=== PATIENT | female | born 1965 | race African-American/Black ===

== ENCOUNTER 2023-07-31 17:12 | Inpatient (IN) | payer OTHER ==
[~2023-07-31] VITALS: Ht 193 cm; Wt 79.8 kg
[~2023-07-31 17:12] MED LIST: HYDR-4350 MT; LEVO500T2 MT; METR500T MT; PHEN100C4 MT
[2023-07-31] MEDS ORDERED: FAMOTIDINE 20MG/2ML VIAL IV STA (18:05)
[2023-07-31] MEDS ORDERED: ONDANSETRON HCL 4MG/2ML INJ IV STA (18:05)
[2023-07-31] MEDS ORDERED: MORPHINE SULFATE 4 MG/ML CPJ (NOT FOR IM USE) IV STA (18:05)
[2023-07-31] MEDS ORDERED: SODIUM CHLORIDE 0.9% 1,000 ML IV ONE (18:15)
[2023-07-31 18:56] LABS: CHLORIDE 98 mEq/L (98-107); INDEX HEMOLYSI 4 (1-3); INDEX ICTERIC 1 (1-4); INDEX LIPEMIC 1 (1-3); SODIUM 134 mEq/L (136-145)
[2023-07-31 19:04] LABS: ALANINE AMINOTRANSFERASE 32 IU/L (13-61); ALBUMIN 3.7 g/dL (3.4-5.0); ASPARTATE AMINOTRANSFERASE 51 IU/L (15-37); BILIRUBIN TOTAL 0.8 mg/dL (0.1-1.0); CALCIUM 9.1 mg/dL (8.5-10.1); CARBON DIOXIDE 31 mEq/L (21-32); CREATININE 0.4 mg/dL (0.6-1.3); GLUCOSE 94 mg/dL (70-105); UREA NITROGEN BLOOD 5 mg/dL (7-21)
[2023-07-31 19:07] LABS: POTASSIUM 3.8 mEq/L (3.5-5.1)
[2023-07-31 19:37] LABS: CLARITY URINE CLOUDY (CLEAR); COLOR URINE YELLOW (YELLOW); GLUCOSE URINE NEGATIVE (NEGATIVE); KETONES URINE 1+ (NEGATIVE); LEUKOCYTE ESTERASE URINE NEGATIVE (NEGATIVE); NITRITE URINE NEGATIVE (NEGATIVE); OCCULT BLOOD URINE NEGATIVE (NEGATIVE); PH URINE >=9.0 (4.5-8.0); PROTEIN URINE TRACE (NEGATIVE); SPECIFIC GRAVITY URINE 1.011 (1.005-1.030); UROBILINOGEN URINE 0.2 E.U./dL (0.2-1.0)
[2023-07-31 19:58] LABS: BACTERIA URINE 2+; RBC URINE 0-2 /hpf (0-2); SQUAMOUS EPITHELIAL CELL URINE 1+ /lpf (RARE/1+); WBC URINE 0-2 /hpf (0-2)
[2023-07-31 19:59] LABS: AMORPHOUS SEDIMENT URINE 1+ /lpf
[2023-07-31 21:20] LABS: BASOPHILS % 0.8 % (0.0-2.0); HEMATOCRIT. 39.3 % (36.0-48.0); HEMOGLOBIN. 13.2 g/dL (12.0-16.0); LYMPHOCYTES % 35.3 % (20.0-50.0); MEAN CORPUSCULAR HEMOGLOBIN 30.9 pg (28.0-32.0); MEAN CORPUSCULAR HGB CONC 33.6 g/dL (31.0-37.0); MEAN PLATELET VOLUME 7.7 fl (7.4-10.4); MONOCYTES % 10.8 % (2.0-8.0); NEUTROPHILS % 52.1 % (40.0-76.0); PLATELET 242 x1000/uL (130-400); RED BLOOD CELL COUNT 4.27 mill/uL (4.2-5.4); RED CELL DISTRIBUTION WIDTH 16.7 % (11.6-14.6)
[2023-07-31] MEDS ORDERED: MORPHINE SULFATE 4 MG/ML CPJ (NOT FOR IM USE) IV ONE (22:00)
[2023-07-31] MEDS ORDERED: ONDANSETRON HCL 4MG/2ML INJ IV ONE (22:00)
[2023-08-01] MEDS ORDERED: IOHEXOL-300 100 ML BOTTLE ONE (06:46)
[2023-08-01] MEDS: TRAMADOL 50MG TABLET PO PRN ×3 (09:31→21:20)
[2023-08-01] MEDS ORDERED: HYDRALAZINE 20MG/ML VIAL IV ONE (11:15)
[2023-08-01] MEDS ORDERED: ONDANSETRON HCL 4MG/2ML INJ IV PRN (13:00)
[2023-08-01] MEDS ORDERED: ACETAMINOPHEN 325MG TABLET PO PRN (13:00)
[2023-08-01] MEDS: OMEPRAZOLE 20MG CAPSULE EXTENDED RELEASE PO SCH (14:21)
[2023-08-01] MEDS: AMLODIPINE 10MG TABLET PO SCH (14:21)
[2023-08-01 16:00] VITALS: BP 174/90; PULSE 78; RESP 20; TEMP 97.6
[2023-08-01] MEDS ORDERED: NALOXONE HCL 0.4MG/ML VIAL IV PRN (16:00)
[2023-08-01 16:03] LABS: *AMPHETAMINES SCREEN URINE NEGATIVE (NEGATIVE); *BARBITURATES SCREEN URINE NEGATIVE (NEGATIVE); *BENZODIAZEPINES SCREEN URINE NEGATIVE (NEGATIVE); *COCAINE SCREEN URINE NEGATIVE (NEGATIVE); CANNABINOID URINE SCREEN PRESUMTIVE POSITIVE (NEGATIVE); ECSTASY MDMA SCREEN URINE NEGATIVE (NEGATIVE); METHADONE URINE SCREEN NEGATIVE (NEGATIVE); OPIATES URINE SCREEN PRESUMTIVE POSITIVE (NEGATIVE); PHENCYCLIDINE URINE SCREEN NEGATIVE (NEGATIVE)
[2023-08-01] MEDS ORDERED: LACTULOSE 20G/30ML UDC PO PRN (16:45)
[2023-08-01] MEDS ORDERED: POLYETHYLENE GLYCOL 3350 (17GM) 1 DOSE PACK PO NR (16:45)
[2023-08-01] MEDS: SUCRALFATE 1 G/10 ML UDC PO SCH ×2 (18:13→21:20)
[2023-08-01 20:00] VITALS: BP 178/89; PULSE 72; RESP 18; TEMP 96.2
[2023-08-01] MEDS: PHENYTOIN SODIUM EXTENDED 100MG CAPSULE PO SCH (20:00)
[2023-08-01 20:11] VITALS: BP 174/90; PULSE 75; RESP 20; TEMP 97.6
[2023-08-02] VITALS: BP 175/102; PULSE 74; RESP 19; TEMP 98.4
[2023-08-02 04:00] VITALS: BP 170/97; PULSE 74; RESP 18; TEMP 99.3
[2023-08-02 04:00] LABS: BASOPHILS % 0.6 % (0.0-2.0); EOSINOPHILS % 1.9 % (0.0-5.0); HEMATOCRIT. 42.8 % (36.0-48.0); HEMOGLOBIN. 14.4 g/dL (12.0-16.0); LYMPHOCYTES % 40.2 % (20.0-50.0); MEAN CORPUSCULAR HEMOGLOBIN 31.1 pg (28.0-32.0); MEAN CORPUSCULAR HGB CONC 33.7 g/dL (31.0-37.0); MEAN CORPUSCULAR VOLUME 92.3 fL (81.0-99.0); MEAN PLATELET VOLUME 8.3 fl (7.4-10.4); NEUTROPHILS % 45.3 % (40.0-76.0); PLATELET 266 x1000/uL (130-400); RED BLOOD CELL COUNT 4.64 mill/uL (4.2-5.4); RED CELL DISTRIBUTION WIDTH 16.4 % (11.6-14.6); WHITE BLOOD COUNT 4.9 x1000/uL (4.5-11.0)
[2023-08-02 04:13] LABS: CHLORIDE 96 mEq/L (98-107); INDEX HEMOLYSI 1 (1-3); INDEX ICTERIC 1 (1-4); INDEX LIPEMIC 1 (1-3); POTASSIUM 3.1 mEq/L (3.5-5.1); SODIUM 135 mEq/L (136-145)
[2023-08-02 04:21] LABS: ALANINE AMINOTRANSFERASE 25 IU/L (13-61); ALBUMIN 3.5 g/dL (3.4-5.0); ASPARTATE AMINOTRANSFERASE 33 IU/L (15-37); BILIRUBIN DIRECT < 0.1 mg/dL (0.0-0.2); BILIRUBIN TOTAL 0.3 mg/dL (0.1-1.0); CALCIUM 9.2 mg/dL (8.5-10.1); CARBON DIOXIDE 29 mEq/L (21-32); CREATININE 0.4 mg/dL (0.6-1.3); GLUCOSE 82 mg/dL (70-105); PROTEIN TOTAL 7.2 g/dL (6.0-8.3); UREA NITROGEN BLOOD 5 mg/dL (7-21)
[2023-08-02 05:27] LABS: PROTHROMBIN TIME 10.7 sec (9.6-11.0)
[2023-08-02 08:00] VITALS: BP 148/87; PULSE 64; RESP 19; TEMP 97.7
[2023-08-02] MEDS ORDERED: POTASSIUM CHLORIDE INJ 40 MEQ in DEXT 5% WATER 500 ML IV NR ×2 (10:00→11:00)
[2023-08-02] MEDS ORDERED: FENTANYL CITRATE/PF 50MCG/ML 2ML VIAL ONE (11:05)
[2023-08-02] MEDS ORDERED: LIDOCAINE HCL 2% 5ML SYRINGE IV ONE (11:05)
[2023-08-02] MEDS ORDERED: PROPOFOL 200MG/20ML VIAL IV ONE (11:06)
[2023-08-02] MEDS ORDERED: GLYCOPYRROLATE 0.2 MG/ML 2ML VIAL ONE (11:14)
[2023-08-02] MEDS ORDERED: SIMETHICONE 40 MG/0.6 ML 15ML ONE (11:28)
[2023-08-02 12:00] VITALS: BP 170/95; PULSE 63; RESP 20; TEMP 97
[2023-08-02] MEDS: SUCRALFATE 1 G/10 ML UDC PO SCH ×2 (12:20→12:46)
[2023-08-02] MEDS ORDERED: OMEP40CA20 MT (12:37)
[2023-08-02] MEDS: PHENYTOIN SODIUM EXTENDED 100MG CAPSULE PO SCH (12:46)
[2023-08-02] MEDS: AMLODIPINE 10MG TABLET PO SCH (12:46)
[2023-08-02] MEDS: OMEPRAZOLE 20MG CAPSULE EXTENDED RELEASE PO SCH (12:47)
[2023-08-02 13:48] VITALS: BP 154/75; PULSE 63; TEMP 97; O2SAT 100
== END 2023-08-02 15:18 | disposition home or self-care (01) | DRG 241 ==
LOC: ER 17:50 → 6WST 08-01 05:30
PROVIDERS: ADMIT Internal Medicine; ATTEND Internal Medicine
PROC: 0DB78ZX Excision of Stomach, Pylorus, Via Natural or Artificial Opening Endoscopic, Diagnostic (ICD-10-PCS; principal; 2023-08-02)
DX: K29.60 Other gastritis without bleeding (principal); D25.9 Leiomyoma of uterus, unspecified; K57.90 Diverticulosis of intestine, part unspecified, without perforation or abscess without bleeding; I16.0 Hypertensive urgency; K44.9 Diaphragmatic hernia without obstruction or gangrene; G40.909 Epilepsy, unspecified, not intractable, without status epilepticus; E66.9 Obesity, unspecified; R74.01 Elevation of levels of liver transaminase levels; Z76.5 Malingerer [conscious simulation]; Z20.822 Contact with and (suspected) exposure to COVID-19; I10 Essential (primary) hypertension; I25.10 Atherosclerotic heart disease of native coronary artery without angina pectoris; K59.00 Constipation, unspecified; J45.909 Unspecified asthma, uncomplicated; Z88.0 Allergy status to penicillin; Z79.899 Other long term (current) drug therapy; Z79.891 Long term (current) use of opiate analgesic
CPT/HCPCS: 36415; 74177; 80048; 80053; 80076; 80305; 81003; 85025; 87426; 88305; 93005; 99285; J0360; J2270; J2405; J2704; J3010; J3480; J3490; J7030; J7060; Q9967

== ENCOUNTER 2023-11-06 03:24 | Emergency (ER) | payer OTHER ==
[~2023-11-06] VITALS: Ht 170.2 cm; Wt 65.0 kg
[~2023-11-06 03:24] MED LIST changes: -HYDR-4350 MT; -LEVO500T2 MT; -METR500T MT; +OMEP40CA20 MT
[2023-11-06 03:26] VITALS: BP 142/70; O2SAT 98
[2023-11-06] MEDS ORDERED: IBUP-2028 MT (05:34)
[2023-11-06 05:57] VITALS: PULSE 80; RESP 16; TEMP 98.5
== END 2023-11-06 05:59 | disposition home or self-care (01) ==
LOC: ER 03:35
DX: M79.642 Pain in left hand (principal); I10 Essential (primary) hypertension; J45.909 Unspecified asthma, uncomplicated; Z88.0 Allergy status to penicillin; Z86.59 Personal history of other mental and behavioral disorders
CPT/HCPCS: 73130; 99283

== ENCOUNTER 2024-04-25 15:44 | Emergency (ER) | payer OTHER ==
[~2024-04-25] VITALS: Ht 165.1 cm; Wt 68.0 kg
[~2024-04-25 15:44] MED LIST changes: +IBUP-2028 MT
[2024-04-25 15:47] VITALS: BP 183/115; PULSE 88; RESP 15; TEMP 98.4; O2SAT 98
== END 2024-04-25 16:27 | disposition home or self-care (01) ==
LOC: ER 15:48
DX: K08.89 Other specified disorders of teeth and supporting structures (principal); Z53.21 Procedure and treatment not carried out due to patient leaving prior to being seen by health care provider

== ENCOUNTER 2024-06-28 19:03 | Emergency (ER) | payer OTHER ==
[~2024-06-28] VITALS: Ht 160 cm; Wt 50.0 kg
[~2024-06-28 19:03] MED LIST changes: +ALBU6.7H15 INH; +AMLO10TA4 PO; +DICL50TA9 PO; +KEPP500 PO; +P20 PO
[2024-06-28 19:22] VITALS: O2SAT 100
[2024-06-28 20:30] LABS: BASOPHILS % 1.6 % (0.0-2.0); EOSINOPHILS % 1.7 % (0.0-5.0); HEMATOCRIT. 40.2 % (36.0-48.0); HEMOGLOBIN. 13.6 g/dL (12.0-16.0); LYMPHOCYTES % 34.4 % (20.0-50.0); MEAN CORPUSCULAR HEMOGLOBIN 33.2 pg (28.0-32.0); MEAN CORPUSCULAR HGB CONC 33.8 g/dL (31.0-37.0); MEAN CORPUSCULAR VOLUME 98.1 fL (81.0-99.0); MONOCYTES % 9.9 % (2.0-8.0); NEUTROPHILS % 52.4 % (40.0-76.0); PLATELET 178 x1000/uL (130-400); RED BLOOD CELL COUNT 4.09 mill/uL (4.2-5.4); RED CELL DISTRIBUTION WIDTH 15.1 % (11.6-14.6)
[2024-06-28] MEDS: LEVETIRACETAM 500MG PREMIX 100 ML IV ONE (20:34)
[2024-06-28 20:35] LABS: CHLORIDE 100 mEq/L (98-107); POTASSIUM 5.6 mEq/L (3.5-5.1); SODIUM 134 mEq/L (136-145)
[2024-06-28 20:36] LABS: CARBON DIOXIDE 23 mEq/L (21-32)
[2024-06-28 20:37] LABS: CALCIUM 9.7 mg/dL (8.7-10.4)
[2024-06-28 20:41] LABS: CREATININE 0.5 mg/dL (0.6-1.0); GLUCOSE 75 mg/dL (70-105)
[2024-06-28 20:45] LABS: UREA NITROGEN BLOOD < 5 mg/dL (9-23)
[2024-06-28 22:25] VITALS: BP 142/90; PULSE 80; RESP 18; TEMP 98.3
== END 2024-06-28 22:43 | disposition home or self-care (01) ==
LOC: ER 19:03
DX: G40.909 Epilepsy, unspecified, not intractable, without status epilepticus (principal); F12.10 Cannabis abuse, uncomplicated; Z87.891 Personal history of nicotine dependence; Z79.899 Other long term (current) drug therapy; Z88.0 Allergy status to penicillin
CPT/HCPCS: 99284; 96365; 80048; 85025; 36415; J1953

== ENCOUNTER 2024-11-20 23:54 | Emergency (ER) | payer OTHER ==
[~2024-11-20] VITALS: Ht 157.5 cm; Wt 55.0 kg
[~2024-11-20 23:54] MED LIST changes: -AMLO10TA4 PO; +COR12 PO; +FURO-151 MT; +HYDR-4001 PO; -IBUP-2028 MT; +LISI10TA26 PO; -P20 PO
[2024-11-21 00:14] VITALS: O2SAT 100
[2024-11-21] MEDS ORDERED: MIDAZOLAM HCL 2 MG/2 ML VIAL IV ONE (01:00)
[2024-11-21] MEDS ORDERED: LEVETIRACETAM 500MG PREMIX 100 ML IV ONE (01:00)
[2024-11-21 06:16] LABS: BASOPHILS % 1.5 % (0.0-2.0); EOSINOPHILS % 3.9 % (0.0-5.0); HEMATOCRIT. 37.1 % (36.0-48.0); HEMOGLOBIN. 11.9 g/dL (12.0-16.0); LYMPHOCYTES % 38.1 % (20.0-50.0); MEAN CORPUSCULAR HEMOGLOBIN 31.1 pg (28.0-32.0); MEAN CORPUSCULAR HGB CONC 32.2 g/dL (31.0-37.0); MEAN CORPUSCULAR VOLUME 96.8 fL (81.0-99.0); MEAN PLATELET VOLUME 7.6 fl (7.4-10.4); MONOCYTES % 7.5 % (2.0-8.0); PLATELET 255 x1000/uL (130-400); RED BLOOD CELL COUNT 3.84 mill/uL (4.2-5.4)
[2024-11-21] MEDS: LEVETIRACETAM 500MG PREMIX 100 ML IV NR (06:22)
[2024-11-21] MEDS: PHENYTOIN SODIUM 1,000 MG in SODIUM CHLORIDE 0.9% 100 ML IV ONE (06:23)
[2024-11-21] MEDS: LEVETIRACETAM 500MG PREMIX 100 ML IV ONE (06:23)
[2024-11-21 06:28] LABS: CARBON DIOXIDE 25 mEq/L (21-32); CHLORIDE 102 mEq/L (98-107); POTASSIUM 4.1 mEq/L (3.5-5.1); SODIUM 135 mEq/L (136-145)
[2024-11-21 06:29] LABS: CALCIUM 10.2 mg/dL (8.7-10.4)
[2024-11-21 06:33] LABS: CREATININE 0.7 mg/dL (0.6-1.0)
[2024-11-21 06:34] LABS: ETHANOL BLOOD 101 mg/dL (<10); GLUCOSE 70 mg/dL (70-105); UREA NITROGEN BLOOD 10 mg/dL (9-23)
[2024-11-21 06:35] LABS: ALANINE AMINOTRANSFERASE 12 IU/L (10-49); ALBUMIN 4.6 g/dL (3.2-4.8); ASPARTATE AMINOTRANSFERASE 31 IU/L (<34)
[2024-11-21 06:36] LABS: BILIRUBIN TOTAL 0.3 mg/dL (0.1-1.0); PHOSPHORUS 3.8 mg/dL (2.5-4.9); PROTEIN TOTAL 8.2 g/dL (6.0-8.3)
[2024-11-21 07:28] VITALS: TEMP 36.66960
[2024-11-21 09:00] VITALS: BP 184/100; PULSE 71; RESP 21; O2SAT 100
[2024-11-21] MEDS: NITROGLYCERIN 0.4MG TABLET SL SL ONE (09:27)
[2024-11-21 09:41] VITALS: TEMP 98
[2024-11-21] MEDS: ACETAMINOPHEN 325MG TABLET PO ONE (09:41)
== END 2024-11-21 09:25 | disposition short-term general hospital (02) ==
LOC: ER 23:54 → CANBEDREQ 11-21 07:47 → ER 11-21 09:25
DX: G40.909 Epilepsy, unspecified, not intractable, without status epilepticus (principal); F10.129 Alcohol abuse with intoxication, unspecified; I11.0 Hypertensive heart disease with heart failure; I50.9 Heart failure, unspecified; F12.90 Cannabis use, unspecified, uncomplicated; J44.9 Chronic obstructive pulmonary disease, unspecified; Z79.899 Other long term (current) drug therapy; Z88.0 Allergy status to penicillin; Z88.1 Allergy status to other antibiotic agents; Y90.9 Presence of alcohol in blood, level not specified
CPT/HCPCS: 80053; 80320; 80185; 83735; 84100; 85025; 36415; 99284; 82542; 96365; J1953; J1165; J7050; G0480

== ENCOUNTER 2025-02-19 19:30 | Emergency (ER) | payer MEDICAID ==
[~2025-02-19] VITALS: Ht 165.1 cm; Wt 66.0 kg
[2025-02-19 19:35] VITALS: O2SAT 97
[2025-02-19] MEDS: ACETAMINOPHEN 325MG TABLET PO ONE (22:52)
[2025-02-19 23:08] VITALS: BP 152/80; PULSE 92; RESP 18; TEMP 36.7; O2SAT 97
== END 2025-02-19 23:15 | disposition home or self-care (01) ==
LOC: ER 19:30
DX: R51.9 Headache, unspecified (principal); F12.10 Cannabis abuse, uncomplicated; E11.9 Type 2 diabetes mellitus without complications; I10 Essential (primary) hypertension; Z88.0 Allergy status to penicillin; Z88.1 Allergy status to other antibiotic agents; Z79.899 Other long term (current) drug therapy; Z86.59 Personal history of other mental and behavioral disorders
CPT/HCPCS: 99284

== ENCOUNTER 2025-02-20 00:07 | Emergency (ER) | payer MEDICAID ==
[2025-02-20 00:17] VITALS: PULSE 72; O2SAT 99
== END 2025-02-20 00:32 | disposition left against medical advice (07) ==
LOC: ER 00:07
DX: R51.9 Headache, unspecified (principal); M54.9 Dorsalgia, unspecified; Z53.21 Procedure and treatment not carried out due to patient leaving prior to being seen by health care provider

== ENCOUNTER 2025-06-10 22:04 | Inpatient (IN) | payer MEDICAID ==
[~2025-06-10] VITALS: Ht 157.5 cm; Wt 61.0 kg
[~2025-06-10 22:04] MED LIST changes: +SPIR25TA6 MT
[2025-06-10] MEDS ORDERED: ALBUTEROL (0.083%) 2.5MG/3ML NEB HHN ONE (23:00)
[2025-06-10] MEDS ORDERED: IPRATROPIUM BROMIDE (0.02%) 0.5MG/2.5ML NEB HHN ONE (23:00)
[2025-06-10 23:34] LABS: BASOPHILS % 1.7 % (0.0-2.0); EOSINOPHILS % 4.1 % (0.0-5.0); HEMATOCRIT. 36.1 % (36.0-48.0); HEMOGLOBIN. 11.6 g/dL (12.0-16.0); LYMPHOCYTES % 23.1 % (20.0-50.0); MEAN PLATELET VOLUME 8.8 fl (7.4-10.4); MONOCYTES % 11.6 % (2.0-8.0); NEUTROPHILS % 59.5 % (40.0-76.0); PLATELET 238 x1000/uL (130-400); RED BLOOD CELL COUNT 4.10 mill/uL (4.2-5.4); RED CELL DISTRIBUTION WIDTH 15.7 % (11.6-14.6)
[2025-06-10 23:46] LABS: CREATININE 0.7 mg/dL (0.6-1.0); UREA NITROGEN BLOOD 19 mg/dL (9-23)
[2025-06-10 23:47] LABS: ETHANOL BLOOD < 10 mg/dL (<10); INR 1.1
[2025-06-10 23:48] LABS: ASPARTATE AMINOTRANSFERASE 176 IU/L (<34)
[2025-06-10 23:49] LABS: BILIRUBIN DIRECT 0.1 mg/dL (<=3.0); BILIRUBIN TOTAL 0.4 mg/dL (0.1-1.0); PROTEIN TOTAL 7.6 g/dL (6.0-8.3)
[2025-06-11] VITALS (7 sets, daily range): BP systolic 100–181; BP diastolic 59–111; PULSE 72–115; RESP 12–24; TEMP 36.6404–36.9; O2SAT 98–99
[2025-06-11 00:05] LABS: TROPONIN I HIGH SENSITIVITY 107 ng/L (3.0-34)
[2025-06-11 00:10] LABS: CLARITY URINE CLEAR (CLEAR); COLOR URINE YELLOW (YELLOW); GLUCOSE URINE NEGATIVE (NEGATIVE); KETONES URINE NEGATIVE (NEGATIVE); LEUKOCYTE ESTERASE URINE TRACE (NEGATIVE); NITRITE URINE NEGATIVE (NEGATIVE); OCCULT BLOOD URINE 1+ (NEGATIVE); PH URINE 5.5 (4.5-8.0); PROTEIN URINE 2+ (NEGATIVE); SPECIFIC GRAVITY URINE 1.015 (1.005-1.030); UROBILINOGEN URINE 0.2 E.U./dL (0.2-1.0)
[2025-06-11 00:19] LABS: *AMPHETAMINES SCREEN URINE NEGATIVE (NEGATIVE); *BARBITURATES SCREEN URINE NEGATIVE (NEGATIVE); *BENZODIAZEPINES SCREEN URINE NEGATIVE (NEGATIVE); *COCAINE SCREEN URINE NEGATIVE (NEGATIVE); CANNABINOID URINE SCREEN NEGATIVE (NEGATIVE); ECSTASY MDMA SCREEN URINE NEGATIVE (NEGATIVE); METHADONE URINE SCREEN NEGATIVE (NEGATIVE); OPIATES URINE SCREEN NEGATIVE (NEGATIVE); PHENCYCLIDINE URINE SCREEN NEGATIVE (NEGATIVE)
[2025-06-11 00:39] LABS: SQUAMOUS EPITHELIAL CELL URINE 1+ /lpf (RARE/1+)
[2025-06-11 00:40] LABS: RBC URINE 0-2 /hpf (0-2); WBC URINE 0-2 /hpf (0-2)
[2025-06-11 00:41] LABS: BACTERIA URINE TRACE
[2025-06-11] MEDS: ENOXAPARIN 60MG/0.6ML SYR SUBCUT NR (00:43)
[2025-06-11] MEDS: ASPIRIN 325MG EC TABLET PO NR (00:44)
[2025-06-11] MEDS: MORPHINE SULFATE 4 MG/ML INJ (FOR IV/IM USE) IV NR (00:44)
[2025-06-11] MEDS: FUROSEMIDE 40MG/4ML VIAL IVP NR (00:45)
[2025-06-11] MEDS: DEXTROSE 50% WATER 50ML SYRINGE IV NR (01:03)
[2025-06-11] MEDS: NITROGLYCERIN OINT 1GM/INCH UDPKT TD NR (01:04)
[2025-06-11] MEDS: IPRATROPIUM BROMIDE (0.02%) 0.5MG/2.5ML NEB HHN NR (03:49)
[2025-06-11] MEDS: ALBUTEROL (0.083%) 2.5MG/3ML NEB HHN NR (03:49)
[2025-06-11] MEDS ORDERED: DEXTROSE 50% WATER 50ML SYRINGE IV PRN (10:00)
[2025-06-11] MEDS ORDERED: ONDANSETRON HCL 4MG/2ML INJ IV PRN (10:00)
[2025-06-11] MEDS ORDERED: IPRATROPIUM/ALBUTEROL 0.5-3(2.5)MG/3ML NEB HHN PRN (10:00)
[2025-06-11] MEDS: CARVEDILOL 12.5MG TABLET PO SCH (10:56)
[2025-06-11] MEDS: FUROSEMIDE 40MG/4ML VIAL IVP SCH (10:56)
[2025-06-11] MEDS: PANTOPRAZOLE SODIUM 40 MG/VIAL IV SCH (10:56)
[2025-06-11] MEDS: LEVETIRACETAM 500MG TABLET PO SCH (10:56)
[2025-06-11] MEDS: SPIRONOLACTONE 25MG TABLET PO SCH (10:57)
[2025-06-11] MEDS: LISINOPRIL 10MG TABLET PO SCH (10:57)
[2025-06-11] MEDS: ACETAMINOPHEN 325MG TABLET PO PRN (10:58)
[2025-06-11] MEDS: IPRATROPIUM/ALBUTEROL 0.5-3(2.5)MG/3ML NEB HHN PRN (11:49)
[2025-06-11] MEDS: BLOOD SUGAR DIAGNOSTIC STRIP TEST SCH (12:20)
[2025-06-11] MEDS: INSULIN LISPRO 100 UNITS/ML SUBCUT SCH (12:50)
[2025-06-11] MEDS: CEFTRIAXONE 1GM/50ML 50 ML IV SCH (13:29)
[2025-06-11] MEDS: EMPAGLIFLOZIN 10MG TABLET PO SCH (13:30)
[2025-06-11] MEDS: ISOSORBIDE MONONITRATE 30MG TABLET SR 24HR PO SCH (13:32)
[2025-06-11] MEDS ORDERED: ASPIRIN 81MG TABLET PO SCH (15:45)
[2025-06-11] MEDS: ENOXAPARIN 60MG/0.6ML SYR SUBCUT SCH (15:53)
[2025-06-11 18:02] LABS: TRIGLYCERIDE 130 mg/dL (0-150)
[2025-06-11 18:03] LABS: LDL CHOLESTEROL 83 mg/dL (5-100)
[2025-06-11 18:13] LABS: TROPONIN I HIGH SENSITIVITY 99 ng/L (3.0-34)
[2025-06-11] MEDS ORDERED: ATORVASTATIN CALCIUM 40MG TABLET PO SCH ×2 (21:00)
[2025-06-11] MEDS ORDERED: FUROSEMIDE 40MG/4ML VIAL IVP SCH (21:00)
[2025-06-12] MEDS ORDERED: ASPIRIN 81MG TABLET PO SCH (09:00)
== END 2025-06-11 20:31 | disposition left against medical advice (07) | DRG 194 ==
LOC: ER 22:04 → 6WST 06-11 00:13 → EDBEDREQ 06-11 00:30 → EDBEDREQDT 06-11 00:30 → EDBEDREQTM 06-11 00:30 → ENRESERV 06-11 06:14
PROVIDERS: ADMIT Internal Medicine; ATTEND Internal Medicine
DX: I11.0 Hypertensive heart disease with heart failure (principal); I21.A1 Myocardial infarction type 2; I42.0 Dilated cardiomyopathy; I50.23 Acute on chronic systolic (congestive) heart failure; E11.9 Type 2 diabetes mellitus without complications; F17.210 Nicotine dependence, cigarettes, uncomplicated; Z20.822 Contact with and (suspected) exposure to COVID-19; N39.0 Urinary tract infection, site not specified; G89.29 Other chronic pain; K21.9 Gastro-esophageal reflux disease without esophagitis; J44.89 Other specified chronic obstructive pulmonary disease; Z53.29 Procedure and treatment not carried out because of patient's decision for other reasons; G40.909 Epilepsy, unspecified, not intractable, without status epilepticus; I25.10 Atherosclerotic heart disease of native coronary artery without angina pectoris; Z91.013 Allergy to seafood; Z88.0 Allergy status to penicillin; Z79.899 Other long term (current) drug therapy; Z71.6 Tobacco abuse counseling; Z88.8 Allergy status to other drugs, medicaments and biological substances
CPT/HCPCS: 36415; 71045; 80048; 80061; 80076; 80305; 80320; 81003; 82728; 82962; 83036; 83540; 83550; 83605; 83735; 83880; 84145; 84443; 84484; 85025; 86592; 87426; 93005; 94003; 94070; 94640; 94664; 98960; 99291; J0696; J1650; J1938; J2270; J2470; G0480

== ENCOUNTER 2025-06-26 07:07 | Inpatient (IN) | payer MEDICAID ==
[~2025-06-26] VITALS: Ht 165.1 cm; Wt 52.6 kg
[2025-06-26] MEDS: DEXTROSE 50% WATER 50ML SYRINGE IV ONE (08:14)
[2025-06-26 08:15] LABS: HEMATOCRIT. 36.5 % (36.0-48.0); HEMOGLOBIN. 11.8 g/dL (12.0-16.0); MEAN PLATELET VOLUME 7.9 fl (7.4-10.4); PLATELET 252 x1000/uL (130-400); RED BLOOD CELL COUNT 4.26 mill/uL (4.2-5.4); RED CELL DISTRIBUTION WIDTH 16.3 % (11.6-14.6)
[2025-06-26 08:32] LABS: CREATININE 0.6 mg/dL (0.6-1.0)
[2025-06-26 08:33] LABS: ETHANOL BLOOD < 10 mg/dL (<10); UREA NITROGEN BLOOD 14 mg/dL (9-23)
[2025-06-26 08:35] LABS: ASPARTATE AMINOTRANSFERASE 131 IU/L (<34); BILIRUBIN DIRECT 0.2 mg/dL (<=3.0); BILIRUBIN TOTAL 0.6 mg/dL (0.1-1.0); PROTEIN TOTAL 6.7 g/dL (6.0-8.3)
[2025-06-26 09:48] LABS: BAND% 9.0 % (1.0-6.0); EOSINOPHILS % MANUAL 1.0 % (0.0-5.0); LYMPHOCYTES % MANUAL 30.0 % (20.0-60.0); MONOCYTES % MANUAL 16.0 % (2.0-8.0); NEUTROPHILS % MANUAL 44.0 % (45.0-75.0); PLATELET ESTIMATE NORMAL
[2025-06-26] MEDS: DEXT 5%/0.9% NACL 1,000 ML IV SCH (13:31)
[2025-06-26 14:24] LABS: CLARITY URINE CLEAR (CLEAR); COLOR URINE YELLOW (YELLOW); GLUCOSE URINE NEGATIVE (NEGATIVE); KETONES URINE NEGATIVE (NEGATIVE); LEUKOCYTE ESTERASE URINE NEGATIVE (NEGATIVE); NITRITE URINE NEGATIVE (NEGATIVE); OCCULT BLOOD URINE NEGATIVE (NEGATIVE); PH URINE 8.5 (4.5-8.0); PROTEIN URINE 2+ (NEGATIVE); SPECIFIC GRAVITY URINE 1.062 (1.005-1.030); UROBILINOGEN URINE 1.0 E.U./dL (0.2-1.0)
[2025-06-26 14:33] LABS: BACTERIA URINE TRACE; RBC URINE 0-2 /hpf (0-2); SQUAMOUS EPITHELIAL CELL URINE 2+ /lpf (RARE/1+); WBC URINE 0-2 /hpf (0-2); YEAST URINE NONE SEEN
[2025-06-26 15:13] LABS: *AMPHETAMINES SCREEN URINE NEGATIVE (NEGATIVE); *BARBITURATES SCREEN URINE NEGATIVE (NEGATIVE); *BENZODIAZEPINES SCREEN URINE NEGATIVE (NEGATIVE); *COCAINE SCREEN URINE NEGATIVE (NEGATIVE); CANNABINOID URINE SCREEN NEGATIVE (NEGATIVE); ECSTASY MDMA SCREEN URINE NEGATIVE (NEGATIVE); METHADONE URINE SCREEN NEGATIVE (NEGATIVE); OPIATES URINE SCREEN NEGATIVE (NEGATIVE); PHENCYCLIDINE URINE SCREEN NEGATIVE (NEGATIVE)
[2025-06-26 16:00] VITALS: BP 179/108; PULSE 82; RESP 19; TEMP 36.4; O2SAT 98
[2025-06-26 18:00] VITALS: BP 179/108; PULSE 82; RESP 19; TEMP 36.418
[2025-06-26] MEDS ORDERED: HYDROCODONE/ACETAMINOPHEN 5/325MG TABLET PO PRN (19:30)
[2025-06-26 20:00] VITALS: BP 152/84; PULSE 92; RESP 19; TEMP 35.6; O2SAT 99
[2025-06-26] MEDS ORDERED: NALOXONE HCL 0.4MG/ML VIAL IV PRN (20:00)
[2025-06-26] MEDS: AMLODIPINE 10MG TABLET PO SCH (22:46)
[2025-06-26] MEDS: LEVETIRACETAM 500MG TABLET PO SCH (22:46)
[2025-06-26] MEDS: CARVEDILOL 12.5MG TABLET PO SCH (22:47)
[2025-06-26] MEDS: LOSARTAN 50 MG TABLET PO SCH (22:47)
[2025-06-26] MEDS: IOHEXOL-300 100 ML BOTTLE ONE (23:32)
[2025-06-27] VITALS: BP 152/93; PULSE 81; RESP 20; TEMP 35.8; O2SAT 97
[2025-06-27 04:00] VITALS: BP 132/78; PULSE 76; RESP 20; TEMP 36.1; O2SAT 96
[2025-06-27 07:52] LABS: HEMATOCRIT. 37.5 % (36.0-48.0); HEMOGLOBIN. 11.9 g/dL (12.0-16.0); MEAN PLATELET VOLUME 8.3 fl (7.4-10.4); PLATELET 239 x1000/uL (130-400); RED BLOOD CELL COUNT 4.34 mill/uL (4.2-5.4); RED CELL DISTRIBUTION WIDTH 16.2 % (11.6-14.6)
[2025-06-27 07:59] LABS: CREATININE 0.6 mg/dL (0.6-1.0)
[2025-06-27 08:00] VITALS: BP 178/96; PULSE 82; RESP 20; TEMP 36.5; O2SAT 98
[2025-06-27 08:00] LABS: TRIGLYCERIDE 108 mg/dL (0-150); UREA NITROGEN BLOOD 12 mg/dL (9-23)
[2025-06-27 08:01] LABS: ASPARTATE AMINOTRANSFERASE 126 IU/L (<34); LDL CHOLESTEROL 104 mg/dL (5-100)
[2025-06-27 08:02] LABS: BILIRUBIN TOTAL 0.7 mg/dL (0.1-1.0); PROTEIN TOTAL 6.7 g/dL (6.0-8.3)
[2025-06-27] MEDS ORDERED: DOCUSATE SODIUM 100MG CAPSULE PO PRN (09:15)
[2025-06-27] MEDS ORDERED: ACETAMINOPHEN 325MG TABLET PO PRN (09:15)
[2025-06-27] MEDS ORDERED: CLONIDINE 0.1MG TABLET PO PRN (09:15)
[2025-06-27] MEDS ORDERED: IPRATROPIUM/ALBUTEROL 0.5-3(2.5)MG/3ML NEB HHN PRN (09:15)
[2025-06-27] MEDS ORDERED: ONDANSETRON HCL 4MG/2ML INJ IV PRN (09:15)
[2025-06-27] MEDS: FUROSEMIDE 40MG TABLET PO SCH (10:20)
[2025-06-27] MEDS: PANTOPRAZOLE 40MG DR TABLET PO SCH (10:21)
[2025-06-27] MEDS: ENOXAPARIN 40MG/0.4ML SYR SUBCUT SCH (10:21)
[2025-06-27 12:00] VITALS: BP 148/92; PULSE 72; RESP 18; TEMP 36.1; O2SAT 98
[2025-06-27 14:38] LABS: CREATINE KINASE MB FRACTION 126.2 ng/mL (0.5-3.6)
[2025-06-27 15:11] LABS: TROPONIN I HIGH SENSITIVITY 89 ng/L (3.0-34)
[2025-06-27 16:00] VITALS: BP 150/101; PULSE 76; RESP 19; TEMP 36.4; O2SAT 97
[2025-06-27] MEDS: HYDROCODONE/ACETAMINOPHEN 5/325MG TABLET PO PRN (16:04)
[2025-06-27 17:15] LABS: EOSINOPHILS % MANUAL 1.0 % (0.0-5.0); METAMYELOCYTES % 2.0 % (0-0); MONOCYTES % MANUAL 11.0 % (2.0-8.0); MYELOCYTES % 1.0 % (0-0); PLATELET ESTIMATE NORMAL
[2025-06-27 17:16] LABS: LYMPHOCYTES % MANUAL 32.0 % (20.0-60.0); NEUTROPHILS % MANUAL 53.0 % (45.0-75.0)
[2025-06-27 20:00] VITALS: BP 142/82; PULSE 71; RESP 18; TEMP 36.4; O2SAT 94
[2025-06-27] MEDS: IPRATROPIUM/ALBUTEROL 0.5-3(2.5)MG/3ML NEB HHN SCH (22:00)
[2025-06-27] MEDS: ATORVASTATIN CALCIUM 40MG TABLET PO SCH (22:21)
[2025-06-27 23:45] LABS: CREATINE KINASE MB FRACTION 195.4 ng/mL (0.5-3.6)
[2025-06-27 23:48] LABS: TROPONIN I HIGH SENSITIVITY 89.0 ng/L (3.0-34)
[2025-06-28] VITALS (10 sets, daily range): BP systolic 101–150; BP diastolic 52–90; PULSE 54–86; RESP 17–20; TEMP 36.3–36.7; O2SAT 94–98
[2025-06-29] VITALS (8 sets, daily range): BP systolic 128–165; BP diastolic 75–97; PULSE 61–95; RESP 16–19; TEMP 35.8–36.9; O2SAT 96–100
[2025-06-29] MEDS: ASPIRIN 81MG TABLET PO SCH (12:30)
[2025-06-30] VITALS (8 sets, daily range): BP systolic 120–135; BP diastolic 67–76; PULSE 54–99; RESP 16–20; TEMP 35.3–36.1; O2SAT 96–100
[2025-06-30] MEDS ORDERED: DIPHENHYDRAMINE 50MG/ML VIAL ONE (10:17)
[2025-06-30] MEDS ORDERED: MIDAZOLAM HCL 2 MG/2 ML VIAL ONE (10:17)
[2025-06-30] MEDS ORDERED: FENTANYL CITRATE/PF 50MCG/ML 2ML VIAL ONE (10:18)
[2025-06-30] MEDS ORDERED: TETRACAINE/BENZOCAINE/BUTAMBEN 20 GM SPRAY MM ONE (10:21)
[2025-06-30] MEDS ORDERED: LIDOCAINE HCL 1% 10 MG/ML 10ML VIAL ONE (10:21)
[2025-07-01] VITALS (12 sets, daily range): BP systolic 122–139; BP diastolic 73–86; PULSE 50–96; RESP 16–20; TEMP 35.9–38.1; O2SAT 94–100
[2025-07-01] MEDS: GUAIFENESIN-DM 200MG-20MG/10ML UDC PO PRN (22:51)
[2025-07-01] MEDS: ACETAMINOPHEN 325MG TABLET PO PRN (22:51)
[2025-07-02] VITALS (9 sets, daily range): BP systolic 101–147; BP diastolic 71–86; PULSE 59–72; RESP 17–20; TEMP 35.6–36.6; O2SAT 94–99
[2025-07-03] VITALS: BP 140/74; PULSE 70; RESP 18; TEMP 36.4; O2SAT 94
[2025-07-03 04:00] VITALS: BP 141/81; PULSE 68; RESP 16; TEMP 36.3; O2SAT 94
[2025-07-03] MEDS: DIPHENHYDRAMINE 50MG CAPSULE PO PRN (06:15)
[2025-07-03 08:00] VITALS: BP_SYST 119; BP_SYST 144; BP_DIAS 83; BP_DIAS 89; PULSE 65; PULSE 69; RESP 17; RESP 18; TEMP 36.5; O2SAT 98
[2025-07-03 12:00] VITALS: BP 144/83; PULSE 65; RESP 18; TEMP 36.5; O2SAT 98
[2025-07-03 16:00] VITALS: BP 130/82; PULSE 64; RESP 19; TEMP 36.3; O2SAT 98
[2025-07-03 20:00] VITALS: BP 140/81; PULSE 65; RESP 18; TEMP 36.6; O2SAT 99
[2025-07-04] VITALS: BP 127/76; PULSE 65; RESP 19; TEMP 36.5; O2SAT 98
[2025-07-04 04:00] VITALS: BP 120/65; PULSE 62; RESP 18; TEMP 36.5; O2SAT 92
[2025-07-04 08:00] VITALS: BP 164/92; PULSE 64; RESP 18; TEMP 36.4; O2SAT 97
[2025-07-04 12:00] VITALS: BP 150/93; PULSE 62; RESP 18; TEMP 36.5; O2SAT 95
[2025-07-04 16:00] VITALS: BP 135/63; PULSE 67; RESP 20; TEMP 36.6; O2SAT 99
[2025-07-05] MEDS: HYDROCODONE/ACETAMINOPHEN 5/325MG TABLET PO PRN (06:44)
[2025-07-05 08:00] VITALS: BP 140/80; PULSE 63; RESP 18; TEMP 36.4; O2SAT 100
[2025-07-05 09:59] LABS: CREATININE 0.6 mg/dL (0.6-1.0); UREA NITROGEN BLOOD 19 mg/dL (9-23)
[2025-07-05 10:01] LABS: PHOSPHORUS 3.2 mg/dL (2.5-4.9)
[2025-07-05 10:04] LABS: HEMATOCRIT. 35.3 % (36.0-48.0); HEMOGLOBIN. 11.5 g/dL (12.0-16.0); MEAN PLATELET VOLUME 8.3 fl (7.4-10.4); PLATELET 262 x1000/uL (130-400); RED BLOOD CELL COUNT 4.18 mill/uL (4.2-5.4); RED CELL DISTRIBUTION WIDTH 16.6 % (11.6-14.6)
[2025-07-05 12:00] VITALS: BP 125/76; PULSE 73; RESP 18; TEMP 37; O2SAT 100
[2025-07-05 16:00] VITALS: BP 118/78; PULSE 68; RESP 18; TEMP 36.4; O2SAT 100
[2025-07-05 20:00] VITALS: BP 118/64; PULSE 67; RESP 16; TEMP 36.9; O2SAT 100
[2025-07-05 20:01] LABS: EOSINOPHILS % MANUAL 4.0 % (0.0-5.0); LYMPHOCYTES % MANUAL 36.0 % (20.0-60.0); MONOCYTES % MANUAL 14.0 % (2.0-8.0); NEUTROPHILS % MANUAL 46.0 % (45.0-75.0); PLATELET ESTIMATE NORMAL
[2025-07-06] VITALS: BP 132/81; PULSE 69; RESP 17; TEMP 36.6; O2SAT 99
[2025-07-06 04:00] VITALS: BP 105/66; PULSE 65; RESP 17; TEMP 36.7; O2SAT 98
[2025-07-06 08:00] VITALS: BP 126/66; PULSE 70; RESP 18; TEMP 36.5; O2SAT 99
[2025-07-06 12:00] VITALS: BP 123/65; PULSE 72; RESP 18; TEMP 36.6; O2SAT 98
[2025-07-06] MEDS ORDERED: CARV12.545 MT (12:48)
[2025-07-06] MEDS ORDERED: ASPI-1406 MT (12:48)
[2025-07-06] MEDS ORDERED: FURO40TA5 PO (12:48)
[2025-07-06] MEDS ORDERED: LIP40 PO (12:48)
[2025-07-06 16:00] VITALS: BP 131/69; PULSE 86; RESP 18; TEMP 36.6; O2SAT 98
[2025-07-06 16:08] VITALS: BP 131/69; PULSE 86; RESP 18; TEMP 97.9
[2025-07-15] MEDS ORDERED: PHEN300C6 MT (15:33)
[2025-07-15] MEDS ORDERED: LISI10TA26 MT ×2 (15:33→16:05)
[2025-07-15] MEDS ORDERED: SPIR25TA6 MT (16:05)
[2025-07-15] MEDS ORDERED: ASPI-1406 MT (16:05)
[2025-07-15] MEDS ORDERED: FURO-151 MT (16:05)
[2025-07-15] MEDS ORDERED: LIP40 PO (16:05)
[2025-07-15] MEDS ORDERED: CARV12.545 MT (16:05)
== END 2025-07-06 20:10 | disposition home health service (06) | DRG 45 ==
LOC: ER 07:07 → EDBEDREQTM 12:17 → EDBEDREQSVC 12:17 → EDBEDREQ 12:19 → ENRESERV 12:44 → 7WST 13:31 → 7EST 14:44
PROVIDERS: ADMIT Internal Medicine; ATTEND Internal Medicine
PROC: B24BZZ4 Ultrasonography of Heart with Aorta, Transesophageal (ICD-10-PCS; principal; 2025-06-27)
DX: I63.9 Cerebral infarction, unspecified (principal); G92.8 Other toxic encephalopathy; I21.A1 Myocardial infarction type 2; I50.23 Acute on chronic systolic (congestive) heart failure; I42.9 Cardiomyopathy, unspecified; R16.0 Hepatomegaly, not elsewhere classified; M62.82 Rhabdomyolysis; D64.9 Anemia, unspecified; G40.909 Epilepsy, unspecified, not intractable, without status epilepticus; I11.0 Hypertensive heart disease with heart failure; D25.9 Leiomyoma of uterus, unspecified; D72.825 Bandemia; E78.5 Hyperlipidemia, unspecified; Z88.1 Allergy status to other antibiotic agents; Z88.0 Allergy status to penicillin; Z91.013 Allergy to seafood; Z88.8 Allergy status to other drugs, medicaments and biological substances; Z79.899 Other long term (current) drug therapy
CPT/HCPCS: 36415; 70544; 70551; 71045; 74177; 80048; 80053; 80061; 80076; 80305; 80320; 81003; 82140; 82550; 82553; 82962; 83605; 83735; 83880; 84100; 84145; 84484; 85025; 93005; 93312; 93880; 93970; 94070; 94640; 94664; 97162; 98960; 99291; A4606; J1200; J1650; J2003; J2250; J3010; J7042; Q0163; Q9967; G0480

== ENCOUNTER 2025-09-10 08:14 | Emergency (ER) | payer MEDICAID ==
[~2025-09-10] VITALS: Ht 157.5 cm; Wt 55.0 kg
[~2025-09-10 08:14] MED LIST changes: +ASPI-1406 MT; +AZIT500T8 MT; +CARV12.545 MT; -COR12 PO; -DICL50TA9 PO; -HYDR-4001 PO; +IPRA3AMP9 HHN; +LIP40 PO; +LISI10TA26 MT; -LISI10TA26 PO; -OMEP40CA20 MT; -PHEN100C4 MT; +PHEN300C6 MT
[2025-09-10 08:16] VITALS: O2SAT 99
[2025-09-10] MEDS: SODIUM CHLORIDE 0.9% 1,000 ML IV ONE (09:01)
[2025-09-10 09:12] LABS: BASOPHILS % 0.7 % (0.0-2.0); EOSINOPHILS % 7.1 % (0.0-5.0); HEMATOCRIT. 33.9 % (36.0-48.0); HEMOGLOBIN. 11.3 g/dL (12.0-16.0); LYMPHOCYTES % 24.9 % (20.0-50.0); MEAN PLATELET VOLUME 7.3 fl (7.4-10.4); MONOCYTES % 14.3 % (2.0-8.0); NEUTROPHILS % 53.0 % (40.0-76.0); PLATELET 325 x1000/uL (130-400); RED BLOOD CELL COUNT 3.87 mill/uL (4.2-5.4); RED CELL DISTRIBUTION WIDTH 16.9 % (11.6-14.6)
[2025-09-10 09:26] LABS: CREATININE 0.6 mg/dL (0.6-1.0); UREA NITROGEN BLOOD 12 mg/dL (9-23)
[2025-09-10 09:28] LABS: ASPARTATE AMINOTRANSFERASE 136 IU/L (<34); BILIRUBIN DIRECT 0.1 mg/dL (<=3.0); BILIRUBIN TOTAL 0.3 mg/dL (0.1-1.0); PROTEIN TOTAL 7.6 g/dL (6.0-8.3)
[2025-09-10] MEDS: MAGNESIUM HYDROXIDE 400MG/5ML 30ML UDC PO ONE (10:30)
[2025-09-10] MEDS: LACTULOSE 20G/30ML UDC PO ONE (10:30)
[2025-09-10 12:00] LABS: TROPONIN I HIGH SENSITIVITY 62 ng/L (3.0-34)
[2025-09-10] MEDS ORDERED: SENN-371 MT (12:08)
[2025-09-10] MEDS: ACETAMINOPHEN 325MG TABLET PO ONE (17:17)
[2025-09-10 20:26] VITALS: BP 144/80; PULSE 95; RESP 16; TEMP 36.8; O2SAT 100
== END 2025-09-10 20:46 | disposition home or self-care (01) ==
LOC: ER 08:14
DX: R07.89 Other chest pain (principal); K59.00 Constipation, unspecified; E11.9 Type 2 diabetes mellitus without complications; I11.9 Hypertensive heart disease without heart failure; I25.2 Old myocardial infarction; I46.9 Cardiac arrest, cause unspecified; J45.909 Unspecified asthma, uncomplicated; Z79.82 Long term (current) use of aspirin; Z79.899 Other long term (current) drug therapy; Z86.73 Personal history of transient ischemic attack (TIA), and cerebral infarction without residual deficits; Z88.0 Allergy status to penicillin; Z88.1 Allergy status to other antibiotic agents; Z91.013 Allergy to seafood
CPT/HCPCS: 99285; 96360; 71045; 80076; 80048; 85025; 84484; 36415; 93005; J7030

== ENCOUNTER 2025-09-14 03:53 | Emergency (ER) | payer MEDICAID ==
[~2025-09-14] VITALS: Ht 154.9 cm; Wt 50.0 kg
[~2025-09-14 03:53] MED LIST changes: +SENN-371 MT
[2025-09-14 04:25] VITALS: O2SAT 95
[2025-09-14 05:15] LABS: BASOPHILS % 1.3 % (0.0-2.0); EOSINOPHILS % 7.0 % (0.0-5.0); HEMATOCRIT. 34.0 % (36.0-48.0); HEMOGLOBIN. 11.2 g/dL (12.0-16.0); LYMPHOCYTES % 26.4 % (20.0-50.0); MEAN PLATELET VOLUME 7.1 fl (7.4-10.4); MONOCYTES % 13.0 % (2.0-8.0); NEUTROPHILS % 52.3 % (40.0-76.0); PLATELET 361 x1000/uL (130-400); RED BLOOD CELL COUNT 3.86 mill/uL (4.2-5.4); RED CELL DISTRIBUTION WIDTH 16.6 % (11.6-14.6)
[2025-09-14 05:27] LABS: CREATININE 0.6 mg/dL (0.6-1.0)
[2025-09-14 05:28] LABS: UREA NITROGEN BLOOD 13 mg/dL (9-23)
[2025-09-14 05:29] LABS: ASPARTATE AMINOTRANSFERASE 145 IU/L (<34)
[2025-09-14 05:30] LABS: BILIRUBIN DIRECT 0.1 mg/dL (<=3.0); BILIRUBIN TOTAL 0.4 mg/dL (0.1-1.0); PROTEIN TOTAL 7.3 g/dL (6.0-8.3)
[2025-09-14 05:33] LABS: TROPONIN I HIGH SENSITIVITY 66 ng/L (3.0-34)
[2025-09-14] MEDS ORDERED: AZIT250T12 MT (07:28)
[2025-09-14] MEDS ORDERED: ALBU18HF2 IH (07:28)
[2025-09-14] MEDS ORDERED: GUAI-450 MT (07:28)
[2025-09-14 08:05] VITALS: BP 121/69; PULSE 89; RESP 16; TEMP 36.6; O2SAT 95
== END 2025-09-14 08:19 | disposition home or self-care (01) ==
LOC: ER 03:53
DX: R09.81 Nasal congestion (principal); J06.9 Acute upper respiratory infection, unspecified; I11.0 Hypertensive heart disease with heart failure; I25.2 Old myocardial infarction; J45.909 Unspecified asthma, uncomplicated; E11.9 Type 2 diabetes mellitus without complications; Z79.82 Long term (current) use of aspirin; Z79.899 Other long term (current) drug therapy; Z86.73 Personal history of transient ischemic attack (TIA), and cerebral infarction without residual deficits; Z88.0 Allergy status to penicillin; Z88.1 Allergy status to other antibiotic agents; Z91.013 Allergy to seafood
CPT/HCPCS: 36415; 71045; 80048; 80076; 83880; 84484; 85025; 87420; 87426; 87804; 93005; 99285

== ENCOUNTER 2025-09-20 17:44 | Emergency (ER) | payer MEDICAID ==
[~2025-09-20] VITALS: Ht 162.6 cm; Wt 50.0 kg
[~2025-09-20 17:44] MED LIST changes: +ALBU18HF2 IH; +AZIT250T12 MT; +GUAI-450 MT
[2025-09-20 17:45] VITALS: O2SAT 100
[2025-09-20] MEDS: METHOCARBAMOL 500MG TABLET PO ONE (18:35)
[2025-09-20] MEDS: IBUPROFEN 600MG TABLET PO ONE (18:35)
[2025-09-20] MEDS: ACETAMINOPHEN 325MG TABLET PO ONE (19:37)
[2025-09-20] MEDS ORDERED: IBUP-1455 MT (20:06)
[2025-09-20] MEDS ORDERED: LEVO750T68 MT (20:06)
[2025-09-20] MEDS ORDERED: METH-653 MT (20:06)
[2025-09-21 01:31] LABS: BASOPHILS % 1.2 % (0.0-2.0); EOSINOPHILS % 5.9 % (0.0-5.0); HEMATOCRIT. 35.9 % (36.0-48.0); HEMOGLOBIN. 12.0 g/dL (12.0-16.0); LYMPHOCYTES % 29.0 % (20.0-50.0); MEAN PLATELET VOLUME 7.3 fl (7.4-10.4); MONOCYTES % 10.1 % (2.0-8.0); NEUTROPHILS % 53.8 % (40.0-76.0); PLATELET 331 x1000/uL (130-400); RED BLOOD CELL COUNT 4.11 mill/uL (4.2-5.4); RED CELL DISTRIBUTION WIDTH 16.8 % (11.6-14.6)
[2025-09-21 01:40] LABS: CREATININE 0.8 mg/dL (0.6-1.0); UREA NITROGEN BLOOD 17 mg/dL (9-23)
[2025-09-21 01:42] LABS: ASPARTATE AMINOTRANSFERASE 120 IU/L (<34)
[2025-09-21 01:43] LABS: BILIRUBIN DIRECT 0.1 mg/dL (<=3.0); BILIRUBIN TOTAL 0.4 mg/dL (0.1-1.0); PROTEIN TOTAL 6.9 g/dL (6.0-8.3)
[2025-09-21 07:26] VITALS: BP 118/74; PULSE 70; RESP 16; TEMP 37; O2SAT 99
== END 2025-09-21 09:17 | disposition left against medical advice (07) ==
LOC: ER 17:44 → EDBEDREQTM 09-21 03:05 → EDBEDREQ 09-21 03:05 → ENRESERV 09-21 04:05 → CANRESERV 09-21 04:05 → ER 09-21 09:17 → CMPBEDREQ 09-21 10:01
DX: S09.8XXA Other specified injuries of head, initial encounter (principal); R53.1 Weakness; R51.9 Headache, unspecified; F10.129 Alcohol abuse with intoxication, unspecified; J18.9 Pneumonia, unspecified organism; I67.82 Cerebral ischemia; J45.909 Unspecified asthma, uncomplicated; Z79.82 Long term (current) use of aspirin; Z79.899 Other long term (current) drug therapy; Z88.0 Allergy status to penicillin; Z88.1 Allergy status to other antibiotic agents; Z91.013 Allergy to seafood; Y90.9 Presence of alcohol in blood, level not specified
CPT/HCPCS: 36415; 71045; 80048; 80076; 85025; 99285; A4606

== ENCOUNTER 2025-10-08 05:19 | Inpatient (IN) | payer MEDICAID ==
[~2025-10-08] VITALS: Ht 152.4 cm; Wt 44.0 kg
[~2025-10-08 05:19] MED LIST changes: +IBUP-1455 MT; +LEVO750T68 MT; +METH-653 MT
[2025-10-08 05:23] VITALS: O2SAT 97
[2025-10-08 07:56] LABS: BASOPHILS % 1.0 % (0.0-2.0); EOSINOPHILS % 6.9 % (0.0-5.0); HEMATOCRIT. 39.9 % (36.0-48.0); HEMOGLOBIN. 12.7 g/dL (12.0-16.0); LYMPHOCYTES % 30.6 % (20.0-50.0); MEAN PLATELET VOLUME 7.9 fl (7.4-10.4); MONOCYTES % 12.9 % (2.0-8.0); NEUTROPHILS % 48.6 % (40.0-76.0); PLATELET 279 x1000/uL (130-400); RED BLOOD CELL COUNT 4.44 mill/uL (4.2-5.4); RED CELL DISTRIBUTION WIDTH 16.1 % (11.6-14.6)
[2025-10-08 08:00] VITALS: BP 125/85; PULSE 72; RESP 18; TEMP 36.8; O2SAT 100
[2025-10-08 08:11] LABS: CREATININE 0.6 mg/dL (0.6-1.0)
[2025-10-08 08:12] LABS: UREA NITROGEN BLOOD 25 mg/dL (9-23)
[2025-10-08 08:13] LABS: ASPARTATE AMINOTRANSFERASE 132 IU/L (<34); TROPONIN I HIGH SENSITIVITY 58 ng/L (3.0-34)
[2025-10-08 08:14] LABS: BILIRUBIN DIRECT < 0.1 mg/dL (<=3.0); BILIRUBIN TOTAL 0.3 mg/dL (0.1-1.0); PROTEIN TOTAL 8.3 g/dL (6.0-8.3)
[2025-10-08 09:54] VITALS: BP 125/85; PULSE 72; RESP 18; TEMP 34.0272
[2025-10-08] MEDS ORDERED: ONDANSETRON HCL 4MG/2ML INJ IV PRN (10:30)
[2025-10-08] MEDS ORDERED: KEPP500 PO (11:48)
[2025-10-08] MEDS ORDERED: QUET50TA MT (11:48)
[2025-10-08] MEDS ORDERED: SPIR25TA6 MT (11:48)
[2025-10-08] MEDS ORDERED: EMPA10TA MT (11:48)
[2025-10-08] MEDS ORDERED: CARV12.545 MT (11:48)
[2025-10-08] MEDS ORDERED: FURO-151 MT (11:48)
[2025-10-08 12:00] VITALS: BP 118/73; PULSE 78; RESP 15; TEMP 36.4; O2SAT 100
[2025-10-08] MEDS: ACETAMINOPHEN 325MG TABLET PO PRN (18:01)
[2025-10-08] MEDS ORDERED: NALOXONE HCL 0.4MG/ML VIAL IV PRN (20:00)
[2025-10-08] MEDS: HYDROCODONE/ACETAMINOPHEN 10/325MG TABLET PO PRN (20:14)
[2025-10-08] MEDS ORDERED: GUAIFENESIN 200MG 200 MG TABLET PO PRN (21:00)
[2025-10-08] MEDS: GUAIFENESIN-DM 200MG-20MG/10ML UDC PO PRN (21:18)
[2025-10-08] MEDS: LEVETIRACETAM 500MG TABLET PO SCH (21:18)
[2025-10-08] MEDS: CARVEDILOL 6.25 MG TABLET PO SCH (21:20)
[2025-10-09] VITALS: BP 127/80; PULSE 65; RESP 18; TEMP 36.3; O2SAT 94
[2025-10-09 04:00] VITALS: BP 141/91; PULSE 70; RESP 18; TEMP 36.5
[2025-10-09 08:00] VITALS: BP 150/90; PULSE 72; RESP 19; TEMP 36.4; O2SAT 90
[2025-10-09] MEDS: LOSARTAN 25 MG TABLET PO SCH (08:46)
[2025-10-09] MEDS: FUROSEMIDE 40MG TABLET PO SCH (08:47)
[2025-10-09 12:00] VITALS: BP 140/75; PULSE 75; RESP 17; TEMP 36.7; O2SAT 87
== END 2025-10-09 14:37 | disposition home or self-care (01) | DRG 194 ==
LOC: ER 05:19 → 5WST 06:40 → EDBEDREQTM 06:42 → EDBEDREQ 06:42
PROVIDERS: ADMIT Internal Medicine; ATTEND Internal Medicine
DX: I11.0 Hypertensive heart disease with heart failure (principal); I42.9 Cardiomyopathy, unspecified; I50.23 Acute on chronic systolic (congestive) heart failure; F10.129 Alcohol abuse with intoxication, unspecified; G40.909 Epilepsy, unspecified, not intractable, without status epilepticus; J45.909 Unspecified asthma, uncomplicated; R10.84 Generalized abdominal pain; R19.7 Diarrhea, unspecified; Z88.0 Allergy status to penicillin; Z88.1 Allergy status to other antibiotic agents; Z91.013 Allergy to seafood; Z79.84 Long term (current) use of oral hypoglycemic drugs; Z79.899 Other long term (current) drug therapy
CPT/HCPCS: 36415; 71045; 74176; 80048; 80076; 84484; 85025; 93005; 99285

== ENCOUNTER 2025-10-18 22:52 | Emergency (ER) | payer MEDICAID ==
[~2025-10-18] VITALS: Ht 157.5 cm; Wt 50.0 kg
[~2025-10-18 22:52] MED LIST changes: -AZIT250T12 MT; -AZIT500T8 MT; +EMPA10TA MT; -LEVO750T68 MT; +QUET50TA MT
[2025-10-18 23:04] VITALS: O2SAT 100
[2025-10-18] MEDS: ACETAMINOPHEN 500MG TABLET PO ONE (23:45)
[2025-10-19] MEDS: KETOROLAC 15MG/ML VIAL IM ONE (00:05)
[2025-10-19] MEDS ORDERED: TOPUD MT (01:59)
[2025-10-19] MEDS ORDERED: IPRA3AMP31 NEB (02:43)
[2025-10-19 03:25] VITALS: BP 118/68; PULSE 88; RESP 16; TEMP 36.9; O2SAT 100
== END 2025-10-19 03:30 | disposition home or self-care (01) ==
LOC: ER 22:52
DX: M79.675 Pain in left toe(s) (principal); I10 Essential (primary) hypertension; E11.9 Type 2 diabetes mellitus without complications; F12.90 Cannabis use, unspecified, uncomplicated; F10.90 Alcohol use, unspecified, uncomplicated; Z88.0 Allergy status to penicillin; Z88.1 Allergy status to other antibiotic agents; Z79.82 Long term (current) use of aspirin; Z79.84 Long term (current) use of oral hypoglycemic drugs; Y90.9 Presence of alcohol in blood, level not specified
CPT/HCPCS: 99283; 73660; 96372; J1885

== ENCOUNTER 2025-11-09 19:26 | Inpatient (IN) | payer MEDICAID ==
[~2025-11-09] VITALS: Ht 160 cm; Wt 39.9 kg
[~2025-11-09 19:26] MED LIST changes: +ACET-2708 MT; -ALBU6.7H15 INH; -IBUP-1455 MT; +IPRA3AMP31 NEB; -KEPP500 PO; +LEVE1000 MT; -LISI10TA26 MT; +LOSA50TA41 MT
[2025-11-09] MEDS ORDERED: METHYLPREDNISOLONE SOD SUCC 125MG/2ML (ACT-O-VIAL) IV ONE (20:00)
[2025-11-09] MEDS: IPRATROPIUM BROMIDE (0.02%) 0.5MG/2.5ML NEB HHN SCH (21:10)
[2025-11-09] MEDS: ALBUTEROL (0.083%) 2.5MG/3ML NEB HHN SCH (21:11)
[2025-11-09 21:12] VITALS: PULSE 68; RESP 22; O2SAT 97
[2025-11-09] MEDS: MAGNESIUM 2 G PREMIX 50 ML IV ONE (21:36)
[2025-11-09] MEDS: METHYLPREDNISOLONE SOD SUCC 125MG/2ML (ACT-O-VIAL) IV NR (21:44)
[2025-11-09 21:47] LABS: BASOPHILS % 1.4 % (0.0-2.0); EOSINOPHILS % 5.0 % (0.0-5.0); HEMATOCRIT. 31.0 % (36.0-48.0); HEMOGLOBIN. 10.1 g/dL (12.0-16.0); LYMPHOCYTES % 22.7 % (20.0-50.0); MEAN PLATELET VOLUME 7.7 fl (7.4-10.4); MONOCYTES % 13.8 % (2.0-8.0); NEUTROPHILS % 57.1 % (40.0-76.0); PLATELET 310 x1000/uL (130-400); RED BLOOD CELL COUNT 3.41 mill/uL (4.2-5.4); RED CELL DISTRIBUTION WIDTH 15.4 % (11.6-14.6)
[2025-11-09 21:58] LABS: CREATININE 0.6 mg/dL (0.6-1.0); UREA NITROGEN BLOOD 19 mg/dL (9-23)
[2025-11-09 21:59] LABS: PROTEIN TOTAL 7.4 g/dL (6.0-8.3)
[2025-11-09 22:00] LABS: ASPARTATE AMINOTRANSFERASE 142 IU/L (<34); BILIRUBIN DIRECT < 0.1 mg/dL (<=3.0); BILIRUBIN TOTAL 0.2 mg/dL (0.1-1.0)
[2025-11-09 22:24] LABS: TROPONIN I HIGH SENSITIVITY 54 ng/L (3.0-34)
[2025-11-09] MEDS ORDERED: CLONIDINE 0.1MG TABLET PO PRN (23:15)
[2025-11-09] MEDS ORDERED: NALOXONE HCL 0.4MG/ML VIAL IV PRN (23:15)
[2025-11-09] MEDS ORDERED: ACETAMINOPHEN 325MG TABLET PO PRN (23:15)
[2025-11-09] MEDS ORDERED: METHYLPREDNISOLONE SOD SUCC 40MG/ML (ACT-O-VIAL) IV SCH (23:15)
[2025-11-09] MEDS ORDERED: ONDANSETRON HCL 4MG/2ML INJ IV PRN (23:15)
[2025-11-09] MEDS ORDERED: ZOLPIDEM TARTRATE 5MG TABLET PO PRN (23:15)
[2025-11-09] MEDS ORDERED: CEFTRIAXONE 1GM/50ML 50 ML IV SCH (23:30)
[2025-11-10] VITALS (8 sets, daily range): BP systolic 128–159; BP diastolic 69–86; PULSE 49–74; RESP 16–22; TEMP 35.6–36.8; O2SAT 96–98
[2025-11-10] MEDS ORDERED: AZITHROMYCIN 500MG/250ML 250 ML IV SCH
[2025-11-10] MEDS: MORPHINE SULFATE 2 MG/ML INJ (NOT FOR IM USE) IV PRN (03:21)
[2025-11-10] MEDS: METHYLPREDNISOLONE SOD SUCC 40MG/ML (ACT-O-VIAL) IV SCH (04:23)
[2025-11-10] MEDS: CEFTRIAXONE 1GM/50ML 50 ML IV SCH (04:23)
[2025-11-10 06:40] LABS: BASOPHILS % 0.3 % (0.0-2.0); EOSINOPHILS % 0.1 % (0.0-5.0); HEMATOCRIT. 35.3 % (36.0-48.0); HEMOGLOBIN. 11.7 g/dL (12.0-16.0); LYMPHOCYTES % 18.1 % (20.0-50.0); MEAN PLATELET VOLUME 7.8 fl (7.4-10.4); MONOCYTES % 2.7 % (2.0-8.0); NEUTROPHILS % 78.8 % (40.0-76.0); PLATELET 309 x1000/uL (130-400); RED BLOOD CELL COUNT 3.86 mill/uL (4.2-5.4); RED CELL DISTRIBUTION WIDTH 15.4 % (11.6-14.6)
[2025-11-10] MEDS: HYDROCODONE/ACETAMINOPHEN 5/325MG TABLET PO PRN (06:59)
[2025-11-10 07:09] LABS: CREATININE 0.6 mg/dL (0.6-1.0); UREA NITROGEN BLOOD 17 mg/dL (9-23)
[2025-11-10 07:44] LABS: HEPATITIS C AB NON REACTIVE (Neg) (Negative)
[2025-11-10] MEDS: AZITHROMYCIN 500 MG TABLET PO SCH (09:24)
[2025-11-10] MEDS: PANTOPRAZOLE SODIUM 40 MG/VIAL IV SCH (09:24)
[2025-11-10] MEDS: ENOXAPARIN 40MG/0.4ML SYR SUBCUT SCH (09:25)
[2025-11-10] MEDS: IPRATROPIUM/ALBUTEROL 0.5-3(2.5)MG/3ML NEB NEB SCH (12:24)
[2025-11-10] MEDS: ASPIRIN 81MG EC TABLET PO SCH (14:44)
[2025-11-10] MEDS: GUAIFENESIN 200MG/10ML SUGAR FREE UDC PO PRN (14:58)
[2025-11-10] MEDS: FUROSEMIDE 40MG TABLET PO SCH (17:17)
[2025-11-10] MEDS: LEVETIRACETAM 500MG/5ML CUP PO SCH (23:25)
[2025-11-10] MEDS: PHENYTOIN SODIUM EXTENDED 100MG CAPSULE PO SCH (23:30)
[2025-11-10] MEDS: ATORVASTATIN CALCIUM 40MG TABLET PO SCH (23:31)
[2025-11-10] MEDS: QUETIAPINE FUMARATE 50MG TABLET PO SCH (23:31)
[2025-11-10] MEDS: CARVEDILOL 12.5MG TABLET PO SCH (23:31)
[2025-11-11] VITALS (10 sets, daily range): BP systolic 129–161; BP diastolic 70–87; PULSE 55–79; RESP 17–20; TEMP 35.7–37; O2SAT 95–98
[2025-11-11 09:03] LABS: BASOPHILS % 0.7 % (0.0-2.0); EOSINOPHILS % 0.1 % (0.0-5.0); HEMATOCRIT. 34.9 % (36.0-48.0); HEMOGLOBIN. 11.4 g/dL (12.0-16.0); LYMPHOCYTES % 24.3 % (20.0-50.0); MEAN PLATELET VOLUME 8.2 fl (7.4-10.4); MONOCYTES % 11.8 % (2.0-8.0); NEUTROPHILS % 63.1 % (40.0-76.0); PLATELET 355 x1000/uL (130-400); RED BLOOD CELL COUNT 3.82 mill/uL (4.2-5.4); RED CELL DISTRIBUTION WIDTH 15.6 % (11.6-14.6)
[2025-11-11] MEDS: SPIRONOLACTONE 25MG TABLET PO SCH (09:21)
[2025-11-11] MEDS: EMPAGLIFLOZIN 10MG TABLET PO SCH (09:21)
[2025-11-11] MEDS: LOSARTAN 50 MG TABLET PO SCH (09:22)
[2025-11-11 09:29] LABS: CREATININE 0.7 mg/dL (0.6-1.0); UREA NITROGEN BLOOD 22 mg/dL (9-23)
[2025-11-12] VITALS (8 sets, daily range): BP systolic 137–189; BP diastolic 66–95; PULSE 52–79; RESP 16–19; TEMP 36.1–36.6; O2SAT 97–100
[2025-11-12 07:28] LABS: BASOPHILS % 0.3 % (0.0-2.0); EOSINOPHILS % 0.0 % (0.0-5.0); HEMATOCRIT. 38.8 % (36.0-48.0); HEMOGLOBIN. 12.8 g/dL (12.0-16.0); LYMPHOCYTES % 18.5 % (20.0-50.0); MEAN PLATELET VOLUME 8.0 fl (7.4-10.4); MONOCYTES % 2.5 % (2.0-8.0); NEUTROPHILS % 78.7 % (40.0-76.0); PLATELET 373 x1000/uL (130-400); RED BLOOD CELL COUNT 4.27 mill/uL (4.2-5.4); RED CELL DISTRIBUTION WIDTH 15.4 % (11.6-14.6)
[2025-11-12 07:30] LABS: CREATININE 0.7 mg/dL (0.6-1.0); UREA NITROGEN BLOOD 27 mg/dL (9-23)
[2025-11-12] MEDS ORDERED: METH4TAB95 MT (14:34)
[2025-11-12] MEDS: MAGNESIUM/ALUMINUM HYDROXIDE/SIMETHICONE 30ML UDC PO PRN (17:55)
[2025-11-13 01:30] VITALS: PULSE 76; RESP 20; O2SAT 98
[2025-11-13 04:33] VITALS: PULSE 80; RESP 19; O2SAT 97
[2025-11-13 13:23] VITALS: BP 143/86; PULSE 64; RESP 16; TEMP 97.7
[2025-11-17] MEDS ORDERED: IBUP-2028 MT ×3 (08:48→08:53)
== END 2025-11-13 15:50 | disposition home or self-care (01) | DRG 140 ==
LOC: ER 19:26 → 6WST 22:42 → EDBEDREQ 22:54 → EDBEDREQTM 22:54 → ENRESERV 23:27
PROVIDERS: ADMIT Internal Medicine; ATTEND Internal Medicine
DX: J44.1 Chronic obstructive pulmonary disease with (acute) exacerbation (principal); J45.901 Unspecified asthma with (acute) exacerbation; I11.0 Hypertensive heart disease with heart failure; I50.22 Chronic systolic (congestive) heart failure; G40.909 Epilepsy, unspecified, not intractable, without status epilepticus; F10.10 Alcohol abuse, uncomplicated; I25.10 Atherosclerotic heart disease of native coronary artery without angina pectoris; Z88.0 Allergy status to penicillin; Y90.9 Presence of alcohol in blood, level not specified; E78.5 Hyperlipidemia, unspecified
CPT/HCPCS: 36415; 71045; 80048; 80076; 82962; 83735; 83880; 84443; 84484; 85025; 86705; 87340; 93005; 94070; 94640; 94664; 96365; 99291; A4606; J0696; J1650; J2270; J2470; J2919; J3475